=== PATIENT | male | born 1950 | race Caucasian/White ===

== ENCOUNTER 2021-10-11 12:15 | Outpatient (CLI) | payer MEDICARE, SELFPAY ==
--- NOTE | ~2021-10-11 | US_ITS ---
EXAMINATION: US scrotum doppler DATE: 10/11/2021 12:40 INDICATION: Left testicular pain TECHNIQUE: Testicular sonogram utilizing grayscale and Doppler COMPARISON: None. FINDINGS: The right testis measures 3.9 x 2.5 x 3.4 cm. The left testis measures 3.9 x 3.0 x 2.9 cm. There is tubular ectasia of the rete testis on the left. There is normal vascular flow to both testes . The right epididymis is normal with normal vascular flow. The left epididymis demonstrates a 7 mm c yst or spermatocele. There is no varicocele or hydrocele. IMPRESSION: 1. No sonographic correlate for the patient's symptoms. Reviewed, dictated and finalized at location F. ER PEELER
--- NOTE | ~2021-10-11 | XR_ITS ---
EXAMINATION: XR lumbar spine 2-3V DATE: 10/11/2021 12:49 INDICATION: Low back pain TECHNIQUE: Anteroposterior and lateral views of the lumbar spine, and cone-down lateral view of the l umbosacral junction were obtained. COMPARISON: None. FINDINGS: There are 3 mm of retrolisthesis of L5 on S1 and 2 mm of anterolisthesis of L2 on L3. There is moderate loss of intervertebral disc space height at L5-S1 and mild loss of intervertebral disc s pace height throughout the remainder of the lumbar spine. 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 The bowel gas pattern is normal. Calcified atherosclerosis is noted. IMPRESSION: 1. Moderate lumbar spondylosis without acute findings. Reviewed, dictated and finalized at location F. SERVICE TECH
== END 2021-10-11 12:16 | disposition home or self-care (01) ==
LOC: CHSIMG 12:18
PROVIDERS: PCP Internal Medicine; Visit Provider Internal Medicine
DX: M54.9 Dorsalgia, unspecified (principal); N50.812 Left testicular pain
CPT/HCPCS: 72100; 76870; 93976

== ENCOUNTER 2021-10-18 08:25 | Outpatient (CLI) | payer MEDICARE, SELFPAY ==
--- NOTE | ~2021-10-18 | CT_ITS ---
EXAMINATION: CT abdomen pelvis w con EXAM DATE: 10/18/2021 09:27 INDICATION: . Diffuse abdominal pain 2-3 months. TECHNIQUE: Spiral CT of the abdomen and pelvis was performed following intravenous injection of 100 m L Omnipaque 350. Axial, coronal and sagittal images of the abdomen and pelvis were reviewed. The do se-length product (DLP) for this examination was 1101.67 mGy-cm. The exposure was tailored according to patient size (auto mA exposure control), and iterative reconstruction (ASIR) was used as addition al dose reduction technique. There is no prior study for comparison. FINDINGS: The liver, spleen, adrenal glands and pancreas are unremarkable. Gallbladder is unremarkab le. No biliary obstruction. Portal and splenic veins are patent. Kidneys enhance symmetrically. T here is no hydronephrosis. Small region of right renal cortical scarring. The prostate is unremarkab le. The bladder is unremarkable. There is no retroperitoneal or pelvic lymphadenopathy. There is mild to moderate scattered arteriosclerotic disease. There are no findings to suggest appendicitis. There is mild scattered colonic diverticulosis. There is no adjacent inflammatory change to suggest diverticulitis. The stomach and small bowel are unrem arkable. There is expected amount of colonic stool. No free intraperitoneal gas. The heart is no rmal in size. There are no pericardial or pleural effusions. The lung bases are unremarkable. Ther e are no osteoblastic or osteolytic lesions identified. IMPRESSION: 1. Mild scattered colonic diverticulosis. 2. Small region right renal cortical scarring. Reviewed, dictated and finalized at location G. TAL RETOUCHER
[2021-10-18 08:59] LABS: Estimated Glomerular Filt Rate > 60
== END 2021-10-18 08:26 | disposition home or self-care (01) ==
LOC: CHSIMG 08:28
PROVIDERS: PCP Internal Medicine; Visit Provider Internal Medicine
DX: R10.9 Unspecified abdominal pain (principal)
CPT/HCPCS: 74177; Q9967

== ENCOUNTER 2022-10-13 14:50 | Outpatient (CLI) | payer MEDICARE, SELFPAY ==
--- NOTE | ~2022-10-13 | XR_ITS ---
EXAMINATION: XR thoracic spine 3V DATE: 10/13/2022 15:21 INDICATION: Back pain. TECHNIQUE: 3 views of thoracic spine on 4 radiographs were obtained. COMPARISON: None. FINDINGS: There is 3 degrees levocurvature of thoracic spine. Vertebral body heights are normal. Ther e is moderate to severely decreased disc height from T5-T6 through T9-T10. IMPRESSION: 1. Severe thoracic spondylosis. Reviewed, dictated and finalized at location A. IT COLLECTION SPECIALIST
--- NOTE | ~2022-10-13 | XR_ITS ---
XR_[id number]_CR 10/13/2022 15:20 Indication: Neck pain for 3-4 week Procedure: 3 view cervical spine Comparison: No prior studies for comparison. Findings: Normal cervical alignment. There is mild disc narrowing at C5-6 and C6-7. No prevertebral s oft tissue abnormality. There is uncinate and facet hypertrophy of the mid cervical spine. Lung apice s are normal. Odontoid process is normal. Lateral masses are normally aligned. Impression: 1: Mild cervical spondylosis. Reviewed, dictated and finalized at location B. T DEVELOPER AUTOMATIC Impression: 1: Mild cervical spondylosis.
== END 2022-10-13 14:51 | disposition home or self-care (01) ==
LOC: CHSIMG 14:52
PROVIDERS: PCP Internal Medicine; Visit Provider Internal Medicine
DX: M54.50 Low back pain, unspecified (principal); M54.2 Cervicalgia; M43.04 Spondylolysis, thoracic region; M43.02 Spondylolysis, cervical region
CPT/HCPCS: 72040; 72072

== ENCOUNTER 2022-10-18 10:41 | Outpatient (RCR) | payer MEDICARE, SELFPAY ==
--- NOTE | 2022-10-18 11:20 | PTOPEVAL1 ---
Assessment and note entered by Herbert Pettit Evaluation Information Assessment Status Evaluation Diagnosis mid back pain Onset 09/20/22 Subjective Information Pt. recalls developing mid back pain about 1 month ago. He reports that pain was becoming more intense, however noted the increase in pain intensity during recent bout of Covid. He states that his pain has been minimal to almost nothing the past 2 days. He enjoys walking on the treadmill and pain is most intense during this activity. He states that he continues to perform all yardwork and other daily activities despite pain. Pt. reports that his goal is to reduce his mid back pain with walking. Reported Pain Level Pain Score 0: Self Report Assessment PT Clinical Summary Pt. is a 71 year old male who enters the clinic with mid back pain. He presents with decrease in symptoms today. At this time pt. currently presents with impaired postural awareness and impaired thoracic accessory mobility. Pt. demonstrates significant reduction in pain indicating the opportunity to decrease treatment frequency. Continued PT is indicated in order to improve these areas to allow for improved comfort with IADL's. Plan of Care Interventions Electrical Stimulation,Hot Pack/Cold Pack,Manual Therapy,Neuro Re-education,Therapeutic Activities, Therapeutic Exercise PT Services Indicated Yes Treatment Frequency and 1x/week x 4 visits Duration These treatments will address the objective and functional deficits as defined above. The patient will be advanced safely and appropriately in order for the patient to progress towards his/her prior level of function. Additional exercises will be introduced and as well as a comprehensive home exercise program upon discharge, if needed, ?to ensure carryover of functional gains achieved in the clinic. This treatment plan has been reviewed and agreement upon by the patient.
== END 2022-11-08 10:54 | disposition home or self-care (01) ==
LOC: CHSPT 10:41
PROVIDERS: PCP Internal Medicine; Visit Provider Internal Medicine
DX: M54.50 Low back pain, unspecified (principal)
CPT/HCPCS: 97012; 97014; 97110; 97140; 97161; G0283

== ENCOUNTER 2022-12-03 10:23 | Emergency (ER) | payer MEDICARE, SELFPAY ==
[2022-12-03 10:46] VITALS: BP 165/73; PULSE 75; RESP 16; TEMP 36.4; O2SAT 99
--- NOTE | 2022-12-03 11:31 | PC.NURSE ---
Reports improvement in vision from arrival to ed.
--- NOTE | 2022-12-03 12:16 | ED.EYEPROB ---
HPI - Eye Problem General Chief complaint: Eye Problems Stated complaint: visual distrubances x 1 hour Time Seen by Provider: 12/03/22 12:01 History of Present Illness HPI Narrative: Patient is a 71-year-old male presenting with visual disturbances. Patient states that he was in his normal state of health this morning. After pentecostalism, he noticed a crescent of color in the periphery of his left eye. He states that it looked like a prism of color. States that he went into his bathroom and as he was looking at his shower curtain, he noticed the vertical lines converging together abnormally. He mentioned this to his who advised that he come in for evaluation. 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 States that he was following with ophthalmology for several years but he is no longer. Upon my evaluation, the patient states that his vision has completely returned to baseline. He states that he never experienced any visual loss or blurriness. Denies increase in floaters. He denies any eye pain. Denies difficulty with extraocular movements. No headache, speech changes, numbness, weakness. Denies further complaints. Related Data Allergies Allergy/AdvReac Type Severity Reaction Status Date / Time No Known Allergies Allergy Mild Verified 12/03/22 10:24 Review of Systems Review of Systems: All systems reviewed & are unremarkable except as noted in HPI and below Exam Narrative: GENERAL: Well-appearing, well-nourished, and in no acute distress. HEAD: Normocephalic, atraumatic. EYES: PERRLA and EOMI. normal conjunctiva ENT: Nares clear, no rhinorrhea or epistaxis. Mucous membranes moist. NECK: Supple. CHEST: No respiratory distress. HEART: Regular rate and rhythm ABDOMEN: nondistended EXTREMITIES: Normal range of motion SKIN: Warm, dry, no rash. NEURO: No focal deficits. Alert and oriented x3. PSYCH: Normal mood and affect. Course Vital Signs Vital signs: Vital Signs Temperature 97.6 F 12/03/22 10:46 Pulse Rate 75 12/03/22 10:46 Respiratory Rate 16 12/03/22 10:46 Blood Pressure 165/73 H 12/03/22 10:46 Pulse Oximetry 99 12/03/22 10:46 Oxygen Delivery Room Air 12/03/22 10:46 Temperature 97.6 F 12/03/22 10:46 Pulse Rate 75 12/03/22 10:46 Respiratory Rate 16 12/03/22 10:46 Blood Pressure 165/73 H 12/03/22 10:46 Pulse Oximetry 99 12/03/22 10:46 Oxygen Delivery Room Air 12/03/22 10:46 MDM - Eye Problem MDM Narrative Medical decision making narrative: Patient is a 71-year-old male presenting with an episode of visual disturbances in his left eye. Patient is hypertensive, otherwise vitals are within normal limits. Exam is remarkable for the above. Upon my evaluation, the patient states that his symptoms have completely resolved. He states that his vision is back to baseline. He is asking to go home. He denies any loss of vision or decrease in visual acuity. He denies any pain or difficulty moving his eyes. Unclear exactly what caused his visual disturbance but feel he is safe for outpatient management. Advised that he follow-up closely with ophthalmology. Strict return precautions were given. Patient voiced understanding and is agreeable with plan. Discharged in stable condition. Differential Diagnosis Differential diagnosis: Likely conjunctivitis, periorbital cellulitis and other (CRAO, retinal detachment, visual disturbances ) Critical Care Time Critical Care Time Critical Care Time: No Discharge Plan Discharge Clinical Impression: Alteration in vision Patient Disposition: Home, Self-Care Condition: Stable Instructions: Antibiotic Form, Eye (Visual) Floaters (ED) Additional Instructions: You were seen today in the ER for visual disturbances involving colors in your left eye. We recommend following up closely with ophthalmology. If your symptoms worsen, you experience vision loss or blurrin
== END 2022-12-03 12:28 | disposition home or self-care (01) ==
PROVIDERS: Emergency Provider Emergency Medicine; PCP Internal Medicine
DX: H53.9 Unspecified visual disturbance (principal)
CPT/HCPCS: 99281

== ENCOUNTER 2025-04-07 15:30 | Outpatient (CLI) | payer MEDICARE, SELFPAY ==
--- NOTE | 2025-04-07 15:43 | ECHO_ITS ---
Patient Info Name: Caleb Pettit Age: 74 years : 1950 Gender: Male Ht: 71 in Wt: 220 lbs BSA: 2.26 m2 HR: 65 bpm BP: 143 / 90 mmHg Heart Rhythm: Sinus Rhythm Technical Quality: Good Exam Date: 04/07/2025 3:53 PM Patient Status: O Admit Date: 04/07/2025 Exam Type: CA echo doppler color flow Complete two-dimensional, color flow and Doppler transthoracic echocardiogram is performed. Storage Garage Attendant: Elizabeth Rodriguez Attending Provider: Benjamín Olvera MD Summary 1. Complete two-dimensional, color flow and Doppler transthoracic echocardiogram is performed. 2. Left ventricular systolic function is normal, estimated at 60-65. 3. There is mild concentric increased left ventricular wall thickness. 4. The left ventricular diastolic function is grade I diastolic dysfunction. 5. E/e' 7 is not elevated. 6. Left atrial chamber dimension is mildly enlarged. 7. There is moderate aortic valve sclerosis. 8. There is mild aortic valve stenosis based on a peak velocity of 182 cm/s, mean gradient of 7 mmHg, and aortic valve area of 1.7 cm2. 9. There is trace tricuspid valve regurgitation. 10. No pulmonary hypertension, estimated pulmonary arterial systolic pressure is 32 mmHg. Left Ventricle E/e' 7 is not elevated. Left ventricular systolic function is normal, estimated at 60-65. There is mild concentric increased left ventricular wall thickness. The left ventricular diastolic function is grade I diastolic dysfunction. Right Ventricle Right ventricular chamber dimension is normal. Right ventricular systolic function is normal. and with normal TAPSE 2.4 cm. Left Atria Left atrial chamber dimension is mildly enlarged. Right Atria Right atrial chamber dimension is normal. Aortic Valve The aortic valve is trileaflet. There is moderate aortic valve sclerosis. There is mild aortic valve stenosis based on a peak velocity of 182 cm/s, mean gradient of 7 mmHg, and aortic valve area of 1.7 cm2. There is no aortic valve regurgitation. Pulmonic Valve There is no pulmonic regurgitation. Mitral Valve There is no mitral valve stenosis. There is no mitral valve regurgitation. Tricuspid Valve There is trace tricuspid valve regurgitation. No pulmonary hypertension, estimated pulmonary arterial systolic pressure is 32 mmHg. Pericardium/Pleural There is no pericardial effusion. Inferior Vena Cava Normal inferior vena cava with >50% collapse upon inspiration consistent with normal right atrial pressure, 5 mmHg. Aorta The aortic root size at the sinus of Valsalva is normal. Left Ventricular Outflow Tract Name Value Normal LVOT 2D LVOT Diameter 2.1 cm LVOT Doppler LVOT Peak Velocity 90 cm/s LVOT Peak Gradient 3 mmHg LVOT Mean Gradient 2 mmHg LVOT VTI 20 cm LVOT VTI/AV VTI Ratio 0.5 LVOT Stroke Volume 69 ml LVOT CO 4.2 l/min LVOT CI 1.9 l/min/m2 Pulmonic Valve Name Value Normal RVOT Doppler RVOT Peak Velocity 72 cm/s RVOT Peak Gradient 2 mmHg PV Doppler PV Peak Velocity 219 cm/s PV Peak Gradient 19 mmHg Mitral Valve Name Value Normal MV Diastolic Function MV E Peak Velocity 71 cm/s MV A Peak Velocity 77 cm/s MV E/A 0.9 MV Decel Time (PW) 366 ms MV Annular TDI MV E/e' (Septal) 9.6 MV E/e' (Lateral) 6.2 MV E/e' (Average) 7.9 Tricuspid Valve Name Value Normal TV Regurgitation Doppler TR Peak Velocity 262 cm/s TR Peak Gradient 27 mmHg Estimated PAP/RSVP RA Pressure 5 mmHg <=5 PA Systolic Pressure 32 mmHg <36 RV Systolic Pressure 32 mmHg <36 TV Annular TDI TV Lateral Raine s' Velocity 16.7 cm/s >=9.5 Aorta Name Value Normal Ascending Aorta Ao Root Diameter (MM) 2.8 cm Ao Root Diam Index (MM) 1.2 cm/m2 Aortic Valve Name Value Normal AV Doppler AV Peak Velocity 182 cm/s AV Peak Gradient 13 mmHg AV Mean Gradient 7 mmHg AV VTI 41 cm AV Area (Cont Eq VTI) 1.7 cm2 >=3.0 AV Area (Cont Eq Royer) 1.7 cm2 AV DI (Royer) 0.50 AV Regurgitation 2D LVOT Area 3.5 cm2 Ventricles Name Value Normal LV Dimensions 2D/MM IVS Diastolic Thickness (2D) 1.2 cm 0.6-1.0 LVID Diastole (2D) 4.3 cm 4.2-5.8 LVIW Diastolic Thickness (2D) 1.1 cm 0.6-1.0 LVID Systole (2D) 2.9 cm 2.5-4.0 LVOT Diameter 2.1 cm LV Mass (2D Cubed) 170.09 g 88.00-224.00 LV Mass Index (2D Cubed) 75 g/m2 49-115 Relative Wall Thickness (2D) 0.51 <=0.42 LV Fractional Shortening/Ejection Fraction 2D/MM LV Fractional Shortening (2D) 33 % 25-43 LV EF (2D Teichholz) 62 % LV Diastolic Volume (4C MOD) 94 ml LV EF (4C MOD) 71 % LV Diastolic Volume (2C MOD) 72 ml LV EF (2C MOD) 60 % LV Diastolic Volume (BP MOD) 85 ml 62-150 LV Diastolic Volume Index (BP MOD) 37 ml/m2 34-74 LV Systolic Volume (BP MOD) 29 ml 21-61 LV Systolic Volume Index (BP MOD) 13 ml/m2 11-31 LV EF (BP MOD) 66 % 52-72 LV Diastolic Length (4C) 8.8 cm LV Systolic Length (4C) 7.1 cm LV Stroke Volume (4C MOD) 66 ml Atria Name Value Normal LA Dimensions LA Dimension (MM) 5.1 cm 3.0-4.0 LA Volume (4C A-L) 84 ml LA Volume (BP A-L) 82 ml RA Dimensions RA Systolic Major [place] Length (4C) 5.6 cm 2.1-2.7 RA Area (4C) 15.0 cm2 <=18.0 Report Signatures
== END 2025-04-07 15:31 | disposition home or self-care (01) ==
LOC: CHSIMG 15:39
PROVIDERS: PCP Internal Medicine; Visit Provider Internal Medicine
DX: R01.1 Cardiac murmur, unspecified (principal); I35.8 Other nonrheumatic aortic valve disorders
CPT/HCPCS: 93306

== ENCOUNTER 2025-08-10 01:00 | Emergency (ER) | payer MEDICARE, SELFPAY ==
[2025-08-10] VITALS (33 sets, daily range): BP systolic 131–194; BP diastolic 75–107; PULSE 50–89; RESP 12–21; TEMP 36.6; O2SAT 96–100
--- NOTE | ~2025-08-10 | CT_ITS ---
EXAMINATION: CTA chest abdomen DATE: 08/10/2025 01:43 INDICATION: Left-sided upper back pain TECHNIQUE: Computed tomographic angiography (CTA) of the chest and abdomen was performed without and with 100 mL Omnipaque-350 intravenous contrast. Volume- rendered 3D-reconstructions of the aorta and large arteries were constructed by the technologist on a separate workstation. Automated exposure control and iterative reconstruction technique were employed. The dose-length product was 975.33 mGy-cm. COMPARISON: CT dated 10/18/2021 and 04/07/2011 FINDINGS: Chest: Lungs are clear with no pneumonia, pulmonary edema, pleural effusion or pneumothorax.. No interval change in few scattered bilateral <3 mm calcified and not definitively calcified pulmonary nodules in both lungs consistent with old granulomatous disease. Heart size is normal. Atherosclerotic coronary artery calcific location. No pericardial effusion. Thoracic aorta is normal in caliber with no dissection. Severe thoracic and lower cervical spondylosis. Abdomen: Liver, gallbladder, spleen, pancreas, bilateral adrenal glands and left kidney are normal. There are couple small region of cortical scarring at the upper pole the right kidney likely sequela prior infection or infarction. There is small amount of nonhemodynamically significant calcified atherosclerosis of the normal caliber aorta and many of the other arteries. No aortic dissection. Visualized portion of the bowels are normal with no obstruction. No pathologically enlarged abdominal or upper pelvic lymphadenopathy. Severe lower lumbar spondylosis. IMPRESSION: 1. Normal caliber aorta with no aneurysm or dissection. No other acute cardiopulmonary disease or acute intra-abdominal/upper pelvic process. 2. Severe thoracic, lower cervical and lower lumbar spondylosis. Reviewed, dictated and finalized at location A. [facility] INSPECTOR IMPRESSION: 1. Normal caliber aorta with no aneurysm or dissection. No other acute cardiopu lmonary disease or acute intra-abdominal/upper pelvic process. 2. Severe thoracic, lower cervical and lower lumbar spondylosis.
[2025-08-10] MEDS: NITROGLYCERIN SL 0.4 MG TABLET SUBLINGUAL ×2 (01:10→01:18)
--- NOTE | 2025-08-10 01:15 | ED_ITS ---
HPI - Chest Pain General Chief Complaint: Chest Pain Stated Complaint: chest pain Time Seen by Provider: 08/10/25 01:00 History of Present Illness HPI narrative: 74-year-old white male with history of hypertension, hypercholesterolemia, woke up about 20-30 minutes ago with severe chest pain, left-sided, chest, back, left arm, not worsened or improved by anything, 10/10, feels nauseated with it, feels hot and flushed, but did not break out in a sweat. Has never had this before, there is no tearing component to it, ripping component,. He denies palpitations, near-syncope, syncope, denies palpitations. There has been nothing going on the past few days, no prodrome, no recent fever, chills, sinus drainage, sore throat, cough,, no abdominal pain, nausea vomiting, diarrhea constipation, dysuria urgency frequency. There is no history of aneurysms, no cardiac history Related Data Home Medications ?Medication ?Instructions ?Recorded ?Confirmed ?Last Taken ?Type losartan 50 mg tablet 50 mg PO DAILY 04/29/2504/20 Unknown History pravastatin 10 mg tablet 10 mg PO DAILY 04/29/2504/20 Unknown History Allergies Allergy/AdvReac Type Severity Reaction Status Date / Time No Known Allergies Allergy Mild Verified 08/10/25 02:15 Review of Systems 2 Review of Systems: ROS is negative except as in HPI PMFSH Social History Social History Smoking status: Never smoker Exam 2 Narrative: pleasant, well-developed, well-nourished, no tobacco odor, appears in severe pain, no diaphoresis. Skin is warm dry. Pain is not reproduced by palpation of his chest wall, or by having him change positions, take a deep breath, or cough Const: General: cooperative, healthy appearing, comfortable, no acute distress, well developed, alert, awake and Physically active O rientation/consciousness: patient oriented x3 HENMT: Head: normal to inspection, normocephalic and atraumatic Ears: h earing grossly normal bilaterally and external ears normal Face/Nose/Sinus: N ormal external nose present, Normal nares present, Normal nasal mucous membranes and turbinates present and normal facial exam Face and sinus: normal facial exam Mouth: Yes Normal oral and palatal mucosa present, Yes lip normal, Yes tongue normal, Yes oropharynx normal and Yes moist mucous membranes Teeth and gingiva: dentition normal Throat: posterior oropharynx normal and tonsils normal ( erythematous) Eyes: General: appearance normal, both eyes and all related structures A lignment and Position: alignment normal and position normal Periorbital: p eriorbital findings normal Eyelids: eyelids normal Conjunctivae: c onjunctivae normal Sclera: sclerae normal Cornea: corneas normal P upils: Equal, round and reactive pupils present EOM: EOMs intact bilaterally Neck: Neck: normal visual inspection, full ROM and no lymphadenopathy Chest: Chest palpation & inspection: normal inspection of the chest, no crepitus, no localized rib tenderness, no masses and no tenderness Resp: Effort & Inspection: normal respiratory effort, able to speak in complete sentences, no audible wheezes, no respiratory distress and no use of accessory muscles Auscultation: clear to auscultation bilaterally Cardio: Jugular venous distension: no JVD Rate: regular rate Rhythm: r egular rhythm Heart sounds: Murmur heart sound present (2/6 systolic ejection murmur) GI: Inspection: normal to inspection GI Palp: No abdominal tenderness, No Tenderness to palpation present (GI), No Guarding due to palpation present (GI), No No hepatosplenomegaly present, No Palpable mass present and No Rebound tenderness present Skin: General skin exam: normal color, no rashes or lesions noted, elasticity normal and turgor normal Neuro: General: patient oriented x3, gait normal, tone normal and moves all extremities Cranial nerves: Yes CN's II-XII intact bilaterally, Yes Equal, round and reactive pupils present and Yes Bilaterally intact EOM present S peech: normal speech Motor exam (neuro): 5/5 motor strength present throughout and Normal motor muscle tone present throughout Sensory Exam: n ormal sensation Extrem: General: normal to inspection, normal exam except as noted and no pedal edema Psych: Appearance: grossly normal and well kempt Mental Status: mental status grossly normal Speech and movement: Normal speech and movement present Affect: normal affect Attitude: cooperative Thought process: Normal thought process present Course Course Emergency Course: Differential diagnosis includes but is not limited to acute OK, ACS, aortic dissection, PE, less likely chest wall pain, esophagitis, gastritis, pneumothorax, bronchitis, pneumonia, costochondritis. Blood pressure was also quite high, could be related to hypertensive crisis. Will initiate IV Lopressor along with nitroglycerin to bring his pressure down, as well as to reduce contractility. We will hold off on aspirin until after had the CTA results. We will hold off on any heparinization until after CTA results. Initial EKG at 1:03 a.m. shows a sinus tach, normal axis, IVCD, and it shows some initial J-point depression in 2 3 AVF, V4 V5 and V6. There is also a very slight J-point elevation in AVR. Initial blood pressure was 250 of 130, in this did respond to the nitroglycerin and Lopressor combination. Also gave the patient 4 Zofran, 4 morphine. He is currently at CT angio 1:44 a.m. re-examine of patient shows marked improvement in his symptoms. He is much more comfortable, blood pressure is now 180/104, chest discomfort is markedly improved, although not totally resolved. Will get repeat EKG 1:46 a.m. repeat EKG shows sinus bradycardia, rate of 59, normal axis, and there has been marked normalization of his ST T-waves diffusely. Currently no evidence of ischemia or strain on his EKG. We are also able to get a right- sided EKG at this time, and there are no significant ST T-wave abnormalities. Once CT angio results comes back we will give aspirin and heparinize if negative, and will transfer to higher level of care as he will need catheterization. Waiting troponins. 2:30 a.m. CTA is negative for any dissection, troponin is negative, aspirin given and heparin is in progress. 2:35 a.m. discussed with [facility] transfer nurse and [facility] has a 4-5 day weight, [facility] in [facility] had beds available earlier this evening so rapid will try those facilities 1st. 3:35 a.m. discussed with hospitalist Dr. Mccurdy you accepts the patient to his service. 3 hour troponin is pending, will update the transfer nurse when that result comes back. The 1st troponin was negative Patient will be transferred by ALS, transfer nurse will contact us with bed assignment. Medical decision making complexity and risk was high, with extensive evaluation of labs, monitor, multiple EKGs, decision regarding STEMI or non-STEMI, versus ACS, x-rays, intravenous beta blockers for hypertension, final diagnosis ACS, arrange transfer to a higher level of service for likely catheterization. Critical care time 65 minutes Vital Signs Vital signs: Vital Signs Pulse Rate 86 08/10/25 01:00 Oxygen Delivery Room Air 08/10/25 01:00 Temperature 36.6 C 08/10/25 01:10 Pulse Rate 68 08/10/25 05:16 Respiratory Rate 16 08/10/25 04:15 Blood Pressure 137/80 08/10/25 05:16 Pulse Oximetry 98 08/10/25 05:16 Oxygen Delivery Room Air 08/10/25 01:10 MDM Differential Diagnosis Differential Diagnosis: Differential diagnosis is in ED course Lab Data 08/10/25 01:58 08/10/25 01:58 Labs: Lab Results 08/10/25 08/10/25 Range/Units 01:58 04:55 WBC 6.7 (4.8-10.8) K/mm3 RBC 4.19 L (4.70-6.10) M/mm3 Hgb 12.9 (12.4-15.3) g/dL Hct 37.1 (37.0-46.0) % MCV 88.5 (78.0-102.0) fL MCH 30.8 (27.0-31.0) pg MCHC 34.8 (32-36) g/dL RDW 12.1 (11.6-14.4) % Plt Count 268 (150-420) K/mm3 MPV 9.4 (8.7-11.0) fl Immature Gran % (Auto) 0.7 H (0.0-0.0) % Neut % (Auto) 57.4 (50.0-70.0) % Lymph % (Auto) 29.0 (18.0-42.0) % [place] % (Auto) 9.2 (2.0-11.0) % Eos % (Auto) 3.0 (1.0-6.0) % Baso % (Auto) 0.7 (0.0-1.0) % Lymph # (Auto) 1.95 (1.10-4.50) K/mm3 [place] # (Auto) 0.62 (0.10-0.90) K/mm3 Eos # (Auto) 0.20 (0.02-0.50) K/mm3 Baso # (Auto) 0.05 (0.00-0.10) K/mm3 Abs Immat Gran (auto) 0.05 H (0.00-0.00) K/mm3 Absolute Neuts (auto) 3.86 (1.70-7.20) K/mm3 Absolute Nucleated RBC 0.00 (0.00-0.00) K/mm3 Nucleated RBC % 0.0 (0-0.0) % PT 10.4 (9.50-12.1) Seconds INR 0.9 APTT 28.2 (23.9-30.70) Sec D-Dimer 0.27 (0.19-0.50) mg/L Sodium 138 (137-145) mmol/L Potassium 4.2 (3.4-5.0) mmol/L Chloride 105 (98-107) mmol/L Carbon Dioxide 25 (22-30) mmol/L Anion Gap 8 (4-12) mmol/L BUN 27 H (9-20) mg/dL Creatinine 1.07 (0.7-1.3) mg/dL Estim Creat Clear Calc 66 ml/min Estimated GFR > 60 (59 - ) Glucose 107 (65-110) mg/dL Calculated Osmolality 291 (285-295) mOsm/kg Calcium 8.9 (8.4-10.2) mg/dL Total Bilirubin 0.2 (0.2-1.3) mg/dL AST 27 (17-59) U/L ALT 29 (6-50) U/L Alkaline Phosphatase 72 (38-126) U/L Troponin I < 0.012 0.028 D (0.000-0.034) ng/mL NT-Pro-B Natriuret Pep < 20 (19.9-100) pg/mL Total Protein 6.4 (6.3-8.2) g/dL Albumin 4.2 (3.5-5.1) g/dL Discharge Plan Discharge Clinical Impression: ACS (acute coronary syndrome), Hypertension Chest pain Qualifiers: Chest pain type: chest pain due to myocardial ischemia Ischemic chest pain type: unstable angina pectoris Qualified Code(s): I20.0 - Unstable angina Patient Disposition: Acute Care Hospital Condition: Serious Patient Language: Yakut Prescriptions: No Action losartan 50 mg tablet 50 mg PO DAILY pravastatin 10 mg tablet 10 mg PO DAILY Follow-up/Referrals: Benjamín Olvera MD [Primary Care Provider, Internal Medicine] Time of Disposition: 03:56
[2025-08-10] MEDS: ONDANSETRON INJ 4 MG/2 ML VIAL (01:16)
[2025-08-10] MEDS: MORPHINE SULFATE (*CRX) 4 MG/ML INJ (01:16)
--- NOTE | 2025-08-10 01:22 | ECG_ITS ---
Test Date: 2025-08-10 01:03:57 Measurements Intervals [place] Rate: 106 P: 62 ID: [id number] QRS: 74 QRSD: 112 T: 70 QT: 325 QTc: 432 Interpretive Statements SINUS TACHYCARDIA INTRAVENTRICULAR CONDUCTION DELAY BORDERLINE ST-T WAVE ABNORMALITY- DIFFUSE LEADS BASELINE ARTIFACT- I, III, AVR, AVL, AVF, V1-V3 BORDERLINE ECG No previous ECG available for comparison Electronically Signed On 08-10-2025 07:01:06 [employer] by Brett Carvajal D.O.
[2025-08-10] MEDS: METOPROLOL TARTRATE INJ 5 MG/5 ML VIAL IV PUSH (01:30)
--- NOTE | 2025-08-10 01:33 | ECG_ITS ---
Test Date: 2025-08-10 01:43:45 Measurements Intervals [place] Rate: 61 P: 39 TN: 188 QRS: 28 QRSD: 81 T: 34 QT: 374 QTc: 378 Interpretive Statements SINUS RHYTHM LOW QRS VOLTAGE IN PRECORDIAL LEADS POSSIBLE RIGHT VENTRICULAR CONDUCTION DELAY BASELINE ARTIFACT- I, II, III, AVR, AVL, V1-V3 BORDERLINE ECG Compared to ECG 08/10/2025 01:03:57 HEART RATE HAS DECREASED Electronically Signed On 08-10-2025 07:01:52 [employer] by Brett Carvajal D.O.
--- NOTE | 2025-08-10 01:34 | ECG_ITS ---
Test Date: 2025-08-10 01:46:11 Measurements Intervals [place] Rate: 59 P: 45 MT: 166 QRS: 53 QRSD: 102 T: 50 QT: 397 QTc: 394 Interpretive Statements SINUS BRADYCARDIA BASELINE ARTIFACT- I, II, AVR BORDERLINE ECG Compared to ECG 08/10/2025 01:43:45 NO SIGNIFICANT CHANGE Electronically Signed On 08-10-2025 07:02:17 [employer]NEY by Brett Carvajal D.O.
[2025-08-10 02:02] LABS: Hematocrit 37.1 % (37.0-46.0); Hemoglobin 12.9 g/dL (12.4-15.3); Immature Granulocyte Percent A 0.7 % (0.0-0.0); Lymphocytes Absolute Auto 1.95 K/mm3 (1.10-4.50); Mean Corpuscular HGB Conc 34.8 g/dL (32-36); Mean Corpuscular Hemoglobin 30.8 pg (27.0-31.0); Mean Corpuscular Volume 88.5 fL (78.0-102.0); Nucleated Red Blood Cells Absolute Auto 0.00 K/mm3 (0.00-0.00); Nucleated Red Blood Cells Perc 0.0 % (0-0.0); Platelet Count Result 268 K/mm3 (150-420); Red Blood Count 4.19 M/mm3 (4.70-6.10); White Blood Count 6.7 K/mm3 (4.8-10.8)
[2025-08-10 02:13] LABS: Alanine Aminotransferase 29 U/L (6-50); Albumin Level 4.2 g/dL (3.5-5.1); Alkaline Phosphatase 72 U/L (38-126); Anion Gap 8 mmol/L (4-12); Aspartate Amino Transferase 27 U/L (17-59); Bilirubin,Total 0.2 mg/dL (0.2-1.3); Blood Urea Nitrogen 27 mg/dL (9-20); Calcium 8.9 mg/dL (8.4-10.2); Carbon Dioxide 25 mmol/L (22-30); Chloride 105 mmol/L (98-107); Estimated CRCL calculation 66 ml/min; Estimated Glomerular Filt Rate > 60; Glucose 107 mg/dL (65-110); Osmolality Calculated 291 mOsm/kg (285-295); Potassium 4.2 mmol/L (3.4-5.0); Sodium 138 mmol/L (137-145); Total Protein 6.4 g/dL (6.3-8.2)
[2025-08-10 02:21] LABS: NT Pro B Type Natriuretic Pept < 20 pg/mL (19.9-100)
[2025-08-10 02:22] LABS: INR 0.9; Partial Thromboplastin Time 28.2 Sec (23.9-30.70); Prothrombin Time 10.4 Seconds (9.50-12.1)
[2025-08-10 02:25] LABS: Troponin I < 0.012 ng/mL (0.000-0.034)
[2025-08-10] MEDS: ASPIRIN 81 MG CHEWABLE TABLET 324 MG PO (03:25)
[2025-08-10] MEDS: HEPARIN SOD/D5W 100 UNITS/ML 25,000 UNITS/250 ML BAG 10 UNITS IV CONT (03:48)
--- NOTE | 2025-08-10 04:51 | PC.NURSE ---
Luis called back with [facility] transfer center, stated that she called the wrong hospitalist, she has paged Dr Francisco, but ok to still send the patient.
[2025-08-10 05:56] LABS: Troponin I 0.028 ng/mL (0.000-0.034)
--- NOTE | 2025-08-10 06:33 | PC.NURSE ---
[facility] transfer center updated with most recent troponin
--- NOTE | 2025-08-10 06:36 | PC.NURSE ---
Spoke with SAM Espana at [facility], updated on new troponin level.
== END 2025-08-10 05:30 | disposition short-term general hospital (02) ==
PROVIDERS: Emergency Provider Emergency Medicine; PCP Internal Medicine
DX: I24.9 Acute ischemic heart disease, unspecified (principal); I10 Essential (primary) hypertension
CPT/HCPCS: 36415; 71275; 74175; 80053; 83880; 84484; 85025; 85380; 85610; 85730; 93005; 96374; 96375; 99285; A9270; J0616; J1644; J2270; J2405; Q9967